=== PATIENT | female | born 1985 | race Caucasian/White ===

== ENCOUNTER 2020-06-22 22:48 | Emergency (ER) | payer OTHER ==
[~2020-06-22] VITALS: Ht 152.4 cm; Wt 86.2 kg
[2020-06-22 23:29] LABS: ABSOLUTE EOSINOPHILS 0.2 thou/uL (0.0-0.7); ABSOLUTE LYMPHOCYTES 3.1 thou/uL (0.8-5.3); ABSOLUTE MONOCYTES 0.7 thou/uL (0.0-1.2); ABSOLUTE NEUTROPHILS 6.6 thou/uL (1.6-8.1); BASOPHILS 0.4 %; EOSINOPHILS 2.3 %; HEMOGLOBIN 13.6 gm/dL (12.0-15.0); LYMPHOCYTES 28.8 %; MCH 30.2 pg (26.0-34.0); MCHC 33.9 g/dL (28.0-37.0); MCV 89.3 fL (80.0-100.0); MONOCYTES 6.8 %; MPV 8.6 fl. (7.2-11.1); NUCLEATED RBCS 0 /100WBC; PLATELET COUNT* 221 thou/uL (150-400); POLYS 61.7 %; RBC 4.48 mil/uL (4.20-5.00); RDW-CV 12.5 % (10.5-14.5); WBC 10.7 thou/uL (4.0-11.0)
[2020-06-22 23:34] LABS: CALCIUM 8.7 mg/dL (8.5-10.1)
[2020-06-22 23:38] LABS: ALBUMIN 3.8 g/dL (3.4-5.0); TOTAL BILIRUBIN 0.3 mg/dL (<0.1-1.0); TOTAL PROTEIN 6.6 g/dL (6.4-8.2)
[2020-06-22 23:43] LABS: URINE BILIRUBIN NEGATIVE (Negative); URINE BLOOD NEGATIVE (Negative); URINE CLARITY CLEAR; URINE COLOR YELLOW; URINE GLUCOSE-RANDOM NEGATIVE (Negative); URINE KETONES NEGATIVE (Negative); URINE LEUKOCYTES-REFLEX NEGATIVE (Negative); URINE NITRITE-REFLEX NEGATIVE (Negative); URINE PROTEIN NEGATIVE (Negative); URINE SPECIFIC GRAVITY 1.015 (1.005-1.030); URINE UROBILINOGEN 0.2 E.U./dl (0.2-1.0)
[2020-06-22 23:51] LABS: AMP/METHAMP Negative (Negative); BARBITURATES Negative (Negative); BENZODIAZEPINES Negative (Negative); COCAINE Negative (Negative); METHADONE Negative (Negative); OPIATES Negative (Negative); PCP Negative (Negative); THC POSITIVE (Negative)
[2020-06-23] MEDS ORDERED: FLAGYL500 M1 PO (00:05)
[2020-06-23] MEDS ORDERED: HYDROCODON-ACE1 EAC7 PO (00:05)
[2020-06-23] MEDS ORDERED: CIPROFLOXACIN500 M1 PO (00:05)
[2020-06-23] MEDS ORDERED: ZOFRAN ODT4 MG PO (00:05)
[2020-06-23 00:25] VITALS: BP 140/86
== END 2020-06-23 00:26 | disposition home or self-care (01) ==
LOC: M.ERS 22:48
PROVIDERS: Personal Emergency Response Attendant
DX: K57.92 Diverticulitis of intestine, part unspecified, without perforation or abscess without bleeding (principal); Z91.040 Latex allergy status; Z88.1 Allergy status to other antibiotic agents; Z88.8 Allergy status to other drugs, medicaments and biological substances

== ENCOUNTER 2020-07-03 01:07 | Emergency (ER) | payer OTHER ==
[~2020-07-03] VITALS: Ht 152.4 cm; Wt 86.2 kg
[~2020-07-03 01:07] MED LIST: CIPROFLOXACIN500 M1 PO; FLAGYL500 M1 PO; HYDROCODON-ACE1 EAC7 PO; ZOFRAN ODT4 MG PO
[2020-07-03 01:35] LABS: URINE BILIRUBIN NEGATIVE (Negative); URINE BLOOD NEGATIVE (Negative); URINE CLARITY CLEAR; URINE COLOR YELLOW; URINE GLUCOSE-RANDOM NEGATIVE (Negative); URINE KETONES NEGATIVE (Negative); URINE LEUKOCYTES-REFLEX NEGATIVE (Negative); URINE NITRITE-REFLEX NEGATIVE (Negative); URINE PROTEIN NEGATIVE (Negative); URINE UROBILINOGEN 0.2 E.U./dl (0.2-1.0)
[2020-07-03 01:46] LABS: ABSOLUTE EOSINOPHILS 0.2 thou/uL (0.0-0.7); ABSOLUTE LYMPHOCYTES 2.7 thou/uL (0.8-5.3); ABSOLUTE MONOCYTES 0.9 thou/uL (0.0-1.2); ABSOLUTE NEUTROPHILS 8.1 thou/uL (1.6-8.1); BASOPHILS 0.4 %; EOSINOPHILS 2.1 %; HEMOGLOBIN 14.1 gm/dL (12.0-15.0); LYMPHOCYTES 22.7 %; MCH 30.4 pg (26.0-34.0); MCHC 33.6 g/dL (28.0-37.0); MCV 90.6 fL (80.0-100.0); MONOCYTES 7.3 %; MPV 8.8 fl. (7.2-11.1); NUCLEATED RBCS 0 /100WBC; PLATELET COUNT* 215 thou/uL (150-400); POLYS 67.5 %; RBC 4.64 mil/uL (4.20-5.00); RDW-CV 12.5 % (10.5-14.5)
[2020-07-03 02:01] LABS: CALCIUM 8.6 mg/dL (8.5-10.1); CREATININE 0.9 mg/dL (0.6-1.3); POTASSIUM 3.9 mmol/L (3.5-5.1)
[2020-07-03 02:05] LABS: TOTAL BILIRUBIN 0.3 mg/dL (<0.1-1.0); TOTAL PROTEIN 7.1 g/dL (6.4-8.2)
[2020-07-03] MEDS ORDERED: NORCO 5-325 TA1 EAC2 PO (02:59)
[2020-07-03 03:08] VITALS: BP 142/87
== END 2020-07-03 03:08 | disposition home or self-care (01) ==
LOC: M.ERS 01:07
PROVIDERS: Family Medicine
DX: R10.30 Lower abdominal pain, unspecified (principal); R19.7 Diarrhea, unspecified; Z91.040 Latex allergy status; Z88.1 Allergy status to other antibiotic agents; Z88.8 Allergy status to other drugs, medicaments and biological substances